=== PATIENT | female | born 1940 | race Caucasian/White ===

== ENCOUNTER 2020-04-11 08:06 | Day surgery (SDC) | payer OTHER ==
[~2020-04-11 08:06] MED LIST: ASPI325 PO; Carafate1 GM/10 ML PO; GLIM2 PO; LISI5 PO; METFORMIN HCL1000 M1 PO; SIMV10 PO
[2020-04-13 14:43] LABS: Performing Lab SYMBIODX; Test Name HER 2 FISH
== END 2020-04-11 22:48 | disposition home or self-care (01) ==
LOC: MOI MAM 08:06
PROVIDERS: Family Medicine
DX: C50.911 Malignant neoplasm of unspecified site of right female breast (principal); Z17.0 Estrogen receptor positive status [ER+]
CPT/HCPCS: 19083; 77065; 88305; 88342; 88360; 88374; A4648; G0279

== ENCOUNTER 2020-05-09 08:58 | Day surgery (SDC) | payer OTHER ==
[2020-05-11 12:52] LABS: Performing Lab SYMBIODX; Test Name HER2 FISH
[2020-05-20 08:19] LABS: Result SEE PATHOTH RESULTS
== END 2020-05-09 22:58 | disposition home or self-care (01) ==
LOC: MOI US 08:58 → MOI MAM 09:30 → MOI US 09:30
PROVIDERS: Pathology Anatomic Pathology & Clinical Pathology
DX: C50.211 Malignant neoplasm of upper-inner quadrant of right female breast (principal); Z17.0 Estrogen receptor positive status [ER+]
CPT/HCPCS: 19083; 77065; 88305; 88360; 88363; 88374; A4648

== ENCOUNTER 2020-05-20 07:35 | Day surgery (SDC) | payer OTHER ==
[~2020-05-20] VITALS: Ht 164 cm; Wt 70.4 kg
--- NOTE | 2020-05-20 08:57 | NUR ---
Ambulatory in Day Surgery History, Chart, Medications and Allergies reviewed before start of procedure.Patient confirms NPO status and agrees with scheduled surgery. Patient reports completing Chlorhexadine shower X2 prior to admission to hospital.Surgical site prepped with 2% Chlorhexidine cloth wipe.
--- NOTE | 2020-05-20 11:17 | NUR ---
Discharge instructions reviewed with patient. Patient verbalizes understanding. Copy given to patient to take home. PT DENIES NEED FOR PAIN PILL, STATES SHE WILL TAKE TYLENOL WHEN SHE GETS HOME. DRG C/D/I TO LEFT SIDE. PT STATES SITE FEELS TIGHT, EXPLAINED THIS IS NORMAL AND TO TRY TO LIMIT USE ON LEFT ARM TO HELP WITH DISCOMFORT. Discharged via wheelchair to private car for ride home.PT TOLERATED JUICE AND PUDDING WELL DURING STAY.
== END 2020-05-20 11:15 | disposition home or self-care (01) ==
LOC: ORSCMMR 07:35 → ORD 09:00 → ORSCMMR 11:15
PROVIDERS: Surgery
PROC: B5141ZA Fluoroscopy of Left Jugular Veins using Low Osmolar Contrast, Guidance (ICD-10-PCS; principal; 2020-05-20 09:00)
PROC: 05HN33Z Insertion of Infusion Device into Left Internal Jugular Vein, Percutaneous Approach (ICD-10-PCS; principal; 2020-05-20 09:00)
DX: C50.211 Malignant neoplasm of upper-inner quadrant of right female breast (principal); E11.9 Type 2 diabetes mellitus without complications; K21.9 Gastro-esophageal reflux disease without esophagitis; E78.5 Hyperlipidemia, unspecified; I10 Essential (primary) hypertension; Z79.899 Other long term (current) drug therapy; Z79.84 Long term (current) use of oral hypoglycemic drugs
CPT/HCPCS: 77001; 82947; C1788; J0690; J1100; J1642; J2405; J2704; J3010; J7120

== ENCOUNTER 2020-10-11 08:05 | Day surgery (SDC) | payer OTHER ==
[~2020-10-11] VITALS: Ht 162.6 cm; Wt 55.5 kg
[~2020-10-11 08:05] MED LIST changes: +CHOLP PO; +DIPATR PO; +ONDA4 PO
--- NOTE | 2020-10-11 09:23 | NUR ---
Ambulatory in Day Surgery History, Chart, Medications and Allergies reviewed before start of procedure. Lungs clear T/O to Auscultation. Patient confirms NPO status and agrees with scheduled surgery. Pre-Op teaching done. Pt verbalizes understanding. Patient States Post-Procedure ride home has been arranged.
--- NOTE | 2020-10-11 09:35 | NUR ---
PT'S GLASSES LABELED IN CLEAR BAG AND PLACED IN PACU BIN.
--- NOTE | 2020-10-11 11:55 | NUR ---
10/11/20 1155 Marta Cardenas ALL COUNTS CORRECT.
--- NOTE | 2020-10-11 16:14 | NUR ---
V/S @1611 ERRONEOUSLY CHARTED PATIENT'S OXYGEN FLOW RATE AT 97.3LPM. PT AT 1612 IS SATTING AT 98 ON ROOM AIR.
--- NOTE | 2020-10-12 08:04 | NUR ---
SHIFT SUMMARY POD#1. AAOX4. DISCOMFORT CONTROLLED WITH X1 PAIN PILL. NO NAUSEA/EMESIS. MASECTOMY WITH BETTINA WRAP C/D/I. JPX2 SECURE WITH 10cc SEROUS OUT OF RIGHT + 3cc SEROUS OUT OF LEFT. PT SBA UP TO RESTROOM. GOOD PO INTAKE + OUTPUT. IVF PER ORDERS. PT RESTED WELL T/O NIGHT. REPORT TO DAY SHIFT RN.
--- NOTE | 2020-10-12 09:02 | NUR ---
dr mckeon by to see pt dressing changed ok to d/c home
[2020-10-12] MEDS ORDERED: HYDR1TAB94 PO (09:37)
--- NOTE | 2020-10-12 10:51 | NUR ---
discharge instrucions reviewed with pt verbalized supplies given for dressings and yolette info with collection and record removed eggcrate for pt to take home
--- NOTE | 2020-10-12 11:07 | NUR ---
wc escort to car no acute changes
== END 2020-10-12 11:05 | disposition home or self-care (01) ==
LOC: ORSCMMR 08:05 → NM 08:05 → ORSCMMR 08:06 → NM 09:00 → SURS 12:41 → NM 10-12 11:05 → SURS 10-12 11:05 → ORSCMMR 10-12 11:05
PROVIDERS: Surgery
PROC: 07B50ZX Excision of Right Axillary Lymphatic, Open Approach, Diagnostic (ICD-10-PCS; principal; 2020-10-11 10:00)
PROC: 0HBT0ZZ Excision of Right Breast, Open Approach (ICD-10-PCS; principal; 2020-10-11 10:00)
DX: C50.211 Malignant neoplasm of upper-inner quadrant of right female breast (principal); D36.0 Benign neoplasm of lymph nodes; Z17.0 Estrogen receptor positive status [ER+]; I10 Essential (primary) hypertension; E11.9 Type 2 diabetes mellitus without complications; E78.00 Pure hypercholesterolemia, unspecified; Z79.84 Long term (current) use of oral hypoglycemic drugs; Z79.899 Other long term (current) drug therapy
CPT/HCPCS: 38792; 82947; A9270-GY; A9520; J0690; J1100; J1885; J2250; J2405; J2704; J3010; J7120; Q9968

== ENCOUNTER 2023-02-27 12:44 | Day surgery (SDC) | payer OTHER ==
[~2023-02-27] VITALS: Ht 160 cm; Wt 65.1 kg
[~2023-02-27 12:44] MED LIST changes: +ARIMIDEX1 M2 PO; +HYDR1TAB94 PO; -METFORMIN HCL1000 M1 PO; +METFORMIN HCL500 MG PO; +PANT40 PO
[2023-02-27] MEDS ORDERED: LETR2.5 (12:55)
[2023-02-27] MEDS ORDERED: GABA400 (12:56)
[2023-02-27 15:05] VITALS: BP 153/62
--- NOTE | 2023-02-27 15:17 | NUR ---
02/27/23 1517 Solomon Zavala IV REMOVED INTACT. SITE WNL.
== END 2023-02-27 15:35 | disposition home or self-care (01) ==
LOC: ORSCSDS 12:44
PROVIDERS: Ophthalmology
PROC: 08SR0ZZ Reposition Left Lower Eyelid, Open Approach (ICD-10-PCS; principal; 2023-02-27 14:00)
DX: H02.035 Senile entropion of left lower eyelid (principal); H16.212 Exposure keratoconjunctivitis, left eye; E11.9 Type 2 diabetes mellitus without complications; E78.00 Pure hypercholesterolemia, unspecified; Z79.84 Long term (current) use of oral hypoglycemic drugs; Z79.899 Other long term (current) drug therapy
CPT/HCPCS: 82947; A9270; J0171; J2704; J2795; J7040